=== PATIENT | female | born 1950 | race African-American/Black ===

== ENCOUNTER 2022-06-26 14:16 | Inpatient (IN) | payer OTHER ==
[~2022-06-26] VITALS: Ht 165.1 cm; Wt 107.5 kg
--- NOTE | 2022-06-26 14:32 | NUR ---
[id number] FOR SYNCOPAL EPISODE AT DR. OFFICE. [id number] ON SCENE PER EMS. PT C/O NECK PAIN. ATTACHED TO MONITOR, CHANGED INTO GOWN. AWAITING MD ALBERTO.
--- NOTE | 2022-06-26 14:52 | NUR ---
DR. KABA AT BEDSIDE FOR EVAL
[2022-06-26] MEDS ORDERED: IV NS 0.9% 1,000 ML BAG IV ONE (15:00)
[2022-06-26 15:27] LABS: BASOPHILS % (AUTO) 0.3 % (0.0-2.0); EOSINOPHILS % (AUTO) 1.6 % (0.0-6.0); HEMATOCRIT 42 % (33-45); HEMOGLOBIN 13.3 g/dL (11.5-14.8); LYMPHOCYTES # (AUTO) 2.3 K/uL (0.8-4.8); MEAN CORPUSCULAR HGB CONC 32 g/dl (31.0-36.0); MEAN CORPUSCULAR VOLUME 88 fL (82-100); MONOCYTES # (AUTO) 1.3 K/uL (0.1-1.30); NEUTROPHILS # (AUTO) 7.6 K/uL (1.8-8.9); NEUTROPHILS % (AUTO) 67.1 % (43.0-81.0); PLATELET COUNT (AUTO) 349 K/uL (150-450); RED BLOOD CELL COUNT(AUTO) 4.73 MIL/uL (4.0-5.2); WHITE BLOOD COUNT (AUTO) 11.3 K/uL (4.3-11.0)
[2022-06-26 15:39] LABS: CALCIUM, SERUM 9.1 mg/dL (8.5-10.1); CARBON DIOXIDE 32 mmol/L (21-32); CHLORIDE 106 mmol/L (98-107); CREATININE 1.6 mg/dL (0.6-1.3); GLUCOSE 105 mg/dL (74-106); POTASSIUM 4.4 mmol/L (3.5-5.1); SODIUM SERUM 143 mmol/L (136-145); UREA NITROGEN, BLOOD 30 mg/dL (7-18)
--- NOTE | 2022-06-26 18:18 | NUR ---
COVID TEST COLLECTED AND SENT
--- NOTE | 2022-06-26 19:20 | NUR ---
Pt is noted in bed alert, responsive as report is received from the off going nurse that , Pt came from DR. Nunez C/O Syncopel Episode. Pt care continue as she is been admitted and awaits bed.
--- NOTE | 2022-06-26 19:46 | NUR ---
EPIC PANEL PAGED
--- NOTE | 2022-06-26 20:43 | NUR ---
Pt care continue as report is given to the 3RD Floor RN Elizabeth as pt is going to room 308-2. Pt care continue.
[2022-06-26 21:10] VITALS: BP 124/64
--- NOTE | 2022-06-26 21:15 | NUR ---
TRANSFERRED TO [facility] UNDER ACLS
[2022-06-26 21:30] VITALS: BP_SYST 101; BP_SYST 112; BP_SYST 124; BP_DIAS 64; BP_DIAS 68
--- NOTE | 2022-06-26 21:30 | NUR ---
HAM SMOKERMULTI SPINDLE OPERATOR NOTES RECEIVED FROM ER PER TUSHAR THIS 71 YO FEMALE VIA ACLS PROTOCOL,ALERT,ORIENTED X4,WITH CHIEF COMPLAINTS OF SYNCOPAL EPISODE WHILE AT DOCTORS OFFICE.DIAGNOSIS OF SYNCOPE.ABLE TO AMBULATE WITH STEADY GAIT.NO SKIN ISSUES,WITH SALINE LOCK LEFT AC INTACT AND PATENT,C/O LEFT KNEE PAIN 8/10 ON PAIN SCALE.HOSPITALIST AT BEDSIDE TALKING TO PATIENT.WITH KNOWN ALLERGY TO CODEINE.COLON CA LONG TIME AGO,NO CHEMOTHERAPY NOT RADIATION THERAPY ACCORDING TO PATIENT.COVID VACCINATED,ALSO CURRENTLY RECEIVED HER FLU AND PNA VACCINE SOMETIMES IN JANUARY 2022.WILL CONTINUE TO MONITOR STATUS.CALL LIGHT IN REACH,NEEDS ANTICIPATED.
[2022-06-26] MEDS ORDERED: Z GUARD REMEDY 4 OZ OINT TP PRN (22:00)
[2022-06-26] MEDS ORDERED: MAGNESIUM HYDROXIDE 30 ML UDC PO PRN (22:00)
[2022-06-26] MEDS ORDERED: ONDANSETRON HCL/PF 4 MG/2 ML VIAL IVP PRN (22:00)
[2022-06-26] MEDS: ACETAMINOPHEN 325 MG TABLET PO PRN (23:06)
--- NOTE | 2022-06-26 23:06 | NUR ---
COMBINATION MACHINE TOOL SETTER NOTES C/O LEFT KNEE PAIN,MEDICATED WITH TYLENOL 650MG PO ORDERED AND PER PATIENT REQUEST.
[2022-06-26] MEDS: IV LR 1000 ML 1,000 ML IV PRN (23:09)
--- NOTE | 2022-06-26 23:09 | NUR ---
SPECIAL SERVICES DIRECTOR NOTES STARTED ON IVF,LR 75ML/HR RATE ORDERED.
--- NOTE | 2022-06-26 23:15 | NUR ---
DETHISTLER OPERATOR NOTES WENT DOWN TO RADIOLOGY BY BED FOR CT HEAD AND SPINAL COLUMN,X-RAY OF LEFT KNEE AND TIBIA FIBULA.
[2022-06-27] VITALS: BP 137/71
[2022-06-27 04:00] VITALS: BP 143/65
[2022-06-27] MEDS ORDERED: LOSA100T3 PO (05:26)
[2022-06-27] MEDS ORDERED: CITA20TA16 PO (05:26)
[2022-06-27] MEDS ORDERED: HYDR12.55 PO (05:26)
[2022-06-27] MEDS ORDERED: ROSU10TA2 PO (05:26)
[2022-06-27 06:01] LABS: BILIRUBIN,URINE NEGATIVE (NEGATIVE); COLOR,URINE YELLOW (YELLOW); LEUKOCYTE ESTERASE ,URINE NEGATIVE (NEGATIVE); NITRITE, URINE NEGATIVE (NEGATIVE); PH,URINE 5.5 (5.0-8.0); PROTEIN,URINE NEGATIVE (NEGATIVE); UGLUCOSE NEGATIVE (NEGATIVE); UROBILINOGEN,URINE 0.2 EU/dL (0.2)
--- NOTE | 2022-06-27 06:21 | NUR ---
TOOL FILER HAND NOTES ON BED SLEEPING.LEFT KNEE PAIN IMPROVED WITH TYLENOL.URINE COLLECTED FOR URINALYSIS SENT TO LAB.INSTRUCTED BREAKFAST WIILL BE SERVED A LITTLE WHILE TILL SEEN BY EMERGENCY DEPARTMENT CLINICIAN.IN NO ACUTE DISTRESS WILL ENDORSE TO DAY NURSE FOR DASHAWN.
[2022-06-27 07:00] VITALS: BP 140/70
[2022-06-27] MEDS: PANTOPRAZOLE 40 MG TABLET.DR PO SCH (07:24)
[2022-06-27 07:26] LABS: BASOPHILS # (AUTO) 0.1 K/uL (0.0-0.2); BASOPHILS % (AUTO) 0.5 % (0.0-2.0); EOSINOPHILS % (AUTO) 2.7 % (0.0-6.0); HEMATOCRIT 40 % (33-45); HEMOGLOBIN 12.9 g/dL (11.5-14.8); LYMPHOCYTES # (AUTO) 2.6 K/uL (0.8-4.8); LYMPHOCYTES % (AUTO) 24.1 % (20.0-44.0); MEAN CORPUSCULAR HGB CONC 32 g/dl (31.0-36.0); MEAN CORPUSCULAR VOLUME 87 fL (82-100); MONOCYTES # (AUTO) 1.1 K/uL (0.1-1.30); MONOCYTES % (AUTO) 10.3 % (2.0-12.0); NEUTROPHILS # (AUTO) 6.7 K/uL (1.8-8.9); NEUTROPHILS % (AUTO) 62.4 % (43.0-81.0); PLATELET COUNT (AUTO) 324 K/uL (150-450); RED BLOOD CELL COUNT(AUTO) 4.59 MIL/uL (4.0-5.2); WHITE BLOOD COUNT (AUTO) 10.8 K/uL (4.3-11.0)
--- NOTE | 2022-06-27 07:28 | NUR ---
LENS CEMENTER NOTES RECEIVED PATIENT AWAKE IN BED, A/OX4 IN ROOM AIR WITH NO DIFFICULTY OF BREATHING, ABLE TO VERBALIZED NEEDS, DENIES PAIN OR ANY DISCOMFORTS. IV ACCESS ON LFA #22, INTACT AND PATENT, NO SIGNS OF INFILTRATION AT SITE NOTED. SAFETY MEASURES IN PLACE: BED IN LOWEST LOCKED POSITION, SIDE RAILS UP X2, ADVISED TO USE CALL LIGHT WHEN IN NEED OF ASSISTANCE, TRAY TABLE W/I EASY REACH OF PATIENT. WILL CONTINUE TO MONITOR PATIENT.
[2022-06-27 08:05] LABS: THYROID STIMULATING HORMONE 1.805 uIU/mL (0.358-3.74)
[2022-06-27 08:11] LABS: CALCIUM, SERUM 9.4 mg/dL (8.5-10.1); CREATININE 1.3 mg/dL (0.6-1.3); MAGNESIUM 2.2 mg/dL (1.8-2.4); PHOSPHORUS 3.9 mg/dL (2.5-4.9); POTASSIUM 4.9 mmol/L (3.5-5.1)
[2022-06-27] MEDS: ACETAMINOPHEN 325 MG TABLET PO PRN (08:46)
--- NOTE | 2022-06-27 08:46 | NUR ---
RECRUIT INSTRUCTOR NOTES PATIENT COMPLAINED OF ACHING PAIN AND ASKED FOR SOME PAIN MEDICATION. TYLENOL 650MG PRN, GIVEN. WILL CONTINUE TO MONITOR PATIENT.
--- NOTE | 2022-06-27 09:30 | NUR ---
RN NOTES NOTIFY AND INFORMED DR. LAYA AVALOS TO VERIFY HOME MED RECON.
[2022-06-27 12:20] VITALS: BP_SYST 130; BP_SYST 132; BP_SYST 143; BP_DIAS 57; BP_DIAS 62; BP_DIAS 69
--- NOTE | 2022-06-27 15:42 | NUR ---
RN NOTES BOOKKEEPING TEACHER PHYLICIA HELMS EXPLAINED TO PATIENT AND SON CARMEN, RESULTS OF CT OF LEFT KNEE AND PLAN OF CARE. PHYLICIA WITH VERBAL ORDER OF WEIGHT BEARING TOLERATED TO LEFT LOWER EXTREMITY.
[2022-06-27] MEDS: IV LR 1000 ML 1,000 ML IV PRN (16:30)
[2022-06-27 17:00] VITALS: BP 128/70
--- NOTE | 2022-06-27 18:48 | NUR ---
RN CLOSING NOTES 308-2 PATIENT AWAKE IN BED, SON AT BEDSIDE, A/O X4, LEFT KNEE PAIN IMPROVED WITH TYLENOL. ALL DUE MEDICATIONS GIVEN. ALL NEEDS ATTENDED. SAFETY PRECAUTIONS MAINTAINED. KEPT CALL LIGHT WITHIN AT REACH. KEPT BED ON LOWER LOCKED POSITION. KEPT SIDE RAILS UP X 2 ALL THE TIME. WILL BE ENDORSED TO POULTRY PICKER NURSE FOR DASHAWN.
--- NOTE | 2022-06-27 19:30 | NUR ---
FIELD SALES MANAGER OPENING NOTE RECEIVED PATIENT FROM AM NURSE, PATIENT IN BED, A/O X 4, ABLE TO MAKE NEEDS KNOWN, WITH SON AT BEDSIDE; ON ROOM AIR BREATHING EVENLY AND NO DISTRESS NOTED; HOOKED TO NEWS WIRE PHOTO OPERATOR; WITH ACCESS ON LFA G#22 RUNNING WITH LR X 75 ML/HR; ENCOURAGED VERBALIZATION OF NEEDS; SAFETY MEASURES IMPLEMENTED, BED IN LOW AND LOCKED POSITION, SIDE RAILS UP X 2, CALL LIGHT WITHIN REACH; WILL CONTINUE TO MONITOR THROUGHOUT SHIFT
[2022-06-27 20:27] VITALS: BP 127/61
[2022-06-28] VITALS: BP 126/73
[2022-06-28 00:10] VITALS: BP 126/73
[2022-06-28 04:00] VITALS: BP 140/70
[2022-06-28 04:54] VITALS: BP 148/72
[2022-06-28] MEDS: IV LR 1000 ML 1,000 ML IV PRN (05:49)
[2022-06-28 06:10] LABS: BASOPHILS # (AUTO) 0.1 K/uL (0.0-0.2); BASOPHILS % (AUTO) 0.5 % (0.0-2.0); EOSINOPHILS % (AUTO) 3.1 % (0.0-6.0); HEMATOCRIT 40 % (33-45); HEMOGLOBIN 12.7 g/dL (11.5-14.8); LYMPHOCYTES # (AUTO) 2.8 K/uL (0.8-4.8); MEAN CORPUSCULAR HGB CONC 32 g/dl (31.0-36.0); MEAN CORPUSCULAR VOLUME 87 fL (82-100); MONOCYTES # (AUTO) 0.9 K/uL (0.1-1.30); MONOCYTES % (AUTO) 9.2 % (2.0-12.0); NEUTROPHILS # (AUTO) 5.9 K/uL (1.8-8.9); NEUTROPHILS % (AUTO) 59.2 % (43.0-81.0); PLATELET COUNT (AUTO) 303 K/uL (150-450); RED BLOOD CELL COUNT(AUTO) 4.53 MIL/uL (4.0-5.2); WHITE BLOOD COUNT (AUTO) 9.9 K/uL (4.3-11.0)
[2022-06-28 06:39] LABS: CALCIUM, SERUM 9.3 mg/dL (8.5-10.1); CREATININE 1.2 mg/dL (0.6-1.3)
--- NOTE | 2022-06-28 06:54 | NUR ---
CAR RENTAL AGENCY MANAGER CLOSING NOTE PATIENT IN BED, A/O X 4, ABLE TO MAKE NEEDS KNOWN; STABLE ON ROOM AIR BREATHING EVENLY AND NO DISTRESS NOTED; PATIENT IS ON TELE MONITORING; WITH ACCESS ON LFA G#22 RUNNING WITH LR X 75 ML/HR; NO COMPLAINS OF PAIN AND DISCOMFORT AT THIS TIME; ADMINISTERED MEDICATIONS PRESCRIBED; PATIENTS NEEDS ATTENDED; SAFETY MEASURES IMPLEMENTED, BED IN LOW AND LOCKED POSITION, SIDE RAILS UP X 2, CALL LIGHT WITHIN REACH; WILL ENDORSE TO AM NURSE FOR DASHAWN.
[2022-06-28] MEDS: PANTOPRAZOLE 40 MG TABLET.DR PO SCH (07:18)
[2022-06-28 08:00] VITALS: BP 153/78
[2022-06-28] MEDS ORDERED: VALS80TA31 PO (08:58)
[2022-06-28] MEDS ORDERED: VALSARTAN 80 MG TABLET PO SCH (09:00)
[2022-06-28 12:00] VITALS: BP 161/90
--- NOTE | 2022-06-28 15:51 | NUR ---
RN DISCHARGED NOTES PT DISCHARGED HOME IN STABLE CONDITION. A/O X4. ABLE TO MAKE NEEDS KNOWN. ON ROOM AIR, TOLERATING WELL, NO SOB NOTED. NO SKIN ISSUES NOTED. ALL BELONGINGS ACCOUNTED FOR AND PT SIGNED BELONGINGS LIST. IV ACCESS ON LFA G#22 REMOVED WITH NO ACTIVE BLEEDING NOTED, DRY DRESSING APPLIED AT SITE. PATIENT PROVIDED WITH FWW PRIOR TO DISCHARGE. HEALTH TEACHINGS/DISCHARGE INSTRUCTIONS GIVEN TO PT, VERBALIZED UNDERSTANDING. AUBREE REN WORKING FOR HOME HEALTH PHYSICAL THERAPY FOR PT AND TOOK PT'S CELL PHONE # TO CONTACT ONCE IT'S ARRANGED. NAME ARMBAND REMOVED. PT LEFT UNIT @ 1545 VIA WHEELCHAIR ACCOMPANIED BY YUSEF MARQUEZ, PATIENT'S SON ACE WILL TAKE PATIENT HOME. CHARGE NURSE AWARE OF D/C.
[2022-06-30] MEDS ORDERED: VALS160T2 PO (07:33)
== END 2022-06-28 15:49 | disposition home health service (06) | DRG 73 ==
LOC: ER 14:33 → TELE 20:34
PROVIDERS: ADMIT Nurse Practitioner Family; ATTEND Internal Medicine
DX: G90.8 Other disorders of autonomic nervous system (principal); N17.0 Acute kidney failure with tubular necrosis; S82.145A Nondisplaced bicondylar fracture of left tibia, initial encounter for closed fracture; Z90.49 Acquired absence of other specified parts of digestive tract; E86.0 Dehydration; Z85.038 Personal history of other malignant neoplasm of large intestine; Z20.822 Contact with and (suspected) exposure to COVID-19; E78.5 Hyperlipidemia, unspecified; Z88.5 Allergy status to narcotic agent; Z79.899 Other long term (current) drug therapy; Z87.441 Personal history of nephrotic syndrome; D72.829 Elevated white blood cell count, unspecified; F43.9 Reaction to severe stress, unspecified; W18.30XA Fall on same level, unspecified, initial encounter; Y92.531 Health care provider office as the place of occurrence of the external cause; I49.1 Atrial premature depolarization; M17.0 Bilateral primary osteoarthritis of knee; M25.462 Effusion, left knee; I12.9 Hypertensive chronic kidney disease with stage 1 through stage 4 chronic kidney disease, or unspecified chronic kidney disease; N18.9 Chronic kidney disease, unspecified
CPT/HCPCS: 36415; 70450-TC; 71045-TC; 72125-TC; 73564-TC; 73590-TC; 73700-TC; 76770-TC; 80048-TC; 80061-TC; 83735-TC; 84100-TC; 84443-TC; 84484-TC; 85025-TC; 87081-TC; 93307-TC; 97116-TC; 97530-TC; A4223; C9803; G0378; J7030; J7120